=== PATIENT | female | born 1990 | race African-American/Black ===

== ENCOUNTER 2024-03-05 17:19 | Emergency (ER) | payer OTHER, SELFPAY ==
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
[2024-03-05 17:23] VITALS: BP 133/71; PULSE 106; RESP 16; TEMP 35.8; O2SAT 100; BMI 29.9
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
[2024-03-05 20:27] VITALS: BP 133/71; PULSE 106; RESP 16; TEMP 35.8; O2SAT 100
== END 2024-03-05 20:28 | disposition home or self-care (01) ==
PROVIDERS: Emergency Provider Emergency Medicine
DX: S39.012A Strain of muscle, fascia and tendon of lower back, initial encounter (principal); S80.01XA Contusion of right knee, initial encounter; X58.XXXA Exposure to other specified factors, initial encounter; V43.52XA Car driver injured in collision with other type car in traffic accident, initial encounter; Y93.89 Activity, other specified; Y92.488 Other paved roadways as the place of occurrence of the external cause; Y99.8 Other external cause status
CPT/HCPCS: 72100; 73562; 99282; 99283